=== PATIENT | female | born 1940 | race Asian ===

== ENCOUNTER → 2017-04-01 | Outpatient (CLI) | payer OTHER | END | disposition home or self-care (01) | LOC: RD 08:46 | DX: R06.02 Shortness of breath (principal) ==

== ENCOUNTER 2019-06-18 07:34 | Inpatient (IN) | payer OTHER ==
[~2019-06-18] VITALS: Ht 157.5 cm; Wt 48.1 kg
[2019-06-18 07:43] VITALS: Ht 157.5 cm; Wt 48.1 kg
[2019-06-18 09:30] LABS: ALBUMIN 3.7 g/dL (3.4-5.0); ALKALINE PHOSPHATASE 123 U/L (46-116); ALT/SGPT 14 U/L (14-59); AST/SGOT 16 U/L (15-37); BILIRUBIN TOTAL 0.71 mg/dL (0.20-1.00); CALCIUM 9.7 mg/dL (8.5-10.1); CARBON DIOXIDE 30.9 mmol/L (21-32); CHLORIDE SERUM 100 mmol/L (98-107); GLUCOSE SERUM 142 mg/dL (74-106); POTASSIUM SERUM 4.9 mmol/L (3.5-5.1); SODIUM SERUM 138 mmol/L (136-145); TOTAL PROTEIN, SERUM 7.3 g/dL (6.4-8.2)
[2019-06-18 09:36] LABS: CREATININE SERUM 6.1 mg/dL (0.6-1.0)
[2019-06-18 09:38] LABS: BASOPHIL % 0.4 % (0-2); PLATELET COUNT 333 x10^3mcL (130-400)
[2019-06-18] MEDS ORDERED: NOR5 PO (10:56)
[2019-06-18] MEDS ORDERED: CLONIDINE HYDR0.3 M1 PO (10:56)
[2019-06-18] MEDS ORDERED: LOPRESSOR50 M1 PO (10:56)
[2019-06-18] MEDS ORDERED: HYDRALAZINE HCL25 MG PO (10:57)
[2019-06-18] MEDS ORDERED: HYDRALAZINE HCL25 MG (10:57)
[2019-06-18] MEDS ORDERED: GLIPIZIDE10 M2 PO (10:57)
[2019-06-18] MEDS ORDERED: XANAX0.5 MG PO (10:57)
[2019-06-18] MEDS ORDERED: AMLODIPINE BESYL5 M2 PO (10:59)
[2019-06-18 13:22] LABS: CHOLESTEROL/HDL RATIO 3.6; MAGNESIUM 2.3 mg/dL (1.8-2.4); PHOSPHOROUS 3.4 mg/dL (2.5-4.9)
[2019-06-18 13:38] LABS: T3 TOTAL 1.2 ng/mL
[2019-06-18 13:47] LABS: FREE T4 1.39 ng/dL (0.76-1.46)
[2019-06-18 13:49] LABS: FREE THYROXINE INDEX 4.9 ug/dL (1.4-4.5); T4(THYROXINE) 13.5 ug/dL (4.7-13.3)
[2019-06-18 14:20] VITALS: BP 191/76
[2019-06-18 17:02] VITALS: BP 172/68
[2019-06-18 18:02] VITALS: BP 172/68
[2019-06-18 18:30] VITALS: BP 175/80
[2019-06-18 21:06] VITALS: BP 184/63
[2019-06-18 22:52] VITALS: BP 148/53
[2019-06-19] VITALS (7 sets, daily range): BP systolic 117–189; BP diastolic 48–72
[2019-06-19 06:51] LABS: BASOPHIL % 0.9 % (0-2); PLATELET COUNT 299 x10^3mcL (130-400)
[2019-06-19 07:31] LABS: CALCIUM 9.5 mg/dL (8.5-10.1); CARBON DIOXIDE 28.2 mmol/L (21-32); CHLORIDE SERUM 98 mmol/L (98-107); GLUCOSE SERUM 183 mg/dL (74-106); POTASSIUM SERUM 4.8 mmol/L (3.5-5.1); SODIUM SERUM 138 mmol/L (136-145)
[2019-06-19 07:35] LABS: CREATININE SERUM 7.2 mg/dL (0.6-1.0)
[2019-06-20 04:20] VITALS: BP 126/53
[2019-06-20 07:47] LABS: BASOPHIL % 1.8 % (0-2); PLATELET COUNT 315 x10^3mcL (130-400)
[2019-06-20 07:54] LABS: CALCIUM 9.5 mg/dL (8.5-10.1); CARBON DIOXIDE 32.5 mmol/L (21-32); CHLORIDE SERUM 102 mmol/L (98-107); GLUCOSE SERUM 122 mg/dL (74-106); PHOSPHOROUS 3.7 mg/dL (2.5-4.9); POTASSIUM SERUM 4.1 mmol/L (3.5-5.1); SODIUM SERUM 141 mmol/L (136-145)
[2019-06-20 07:56] LABS: CREATININE SERUM 5.1 mg/dL (0.6-1.0)
[2019-06-20 08:25] LABS: RED CELL DISTRIBUTION WIDTH 14.6 % (11.5-14.5)
[2019-06-20 09:05] VITALS: BP 152/57
[2019-06-20] MEDS ORDERED: PACERONE200 MG PO (12:27)
[2019-06-20] MEDS ORDERED: METOPROLOL TART50 MG PO (12:28)
[2019-06-20] MEDS ORDERED: ZESTRIL20 MG PO (12:28)
[2019-06-20] MEDS ORDERED: ELIQUIS2.5 MG PO (12:28)
[2019-06-20] MEDS ORDERED: CLONIDINE HCL0.1 MG PO (12:31)
[2019-06-20 13:16] VITALS: BP 146/53
== END 2019-06-20 14:40 | disposition home or self-care (01) | DRG 291 ==
LOC: ED 07:34 → DU 12:34
PROVIDERS: Emergency Medicine; ADMIT General Practice
PROC: 5A1D70Z Performance of Urinary Filtration, Intermittent, Less than 6 Hours Per Day (ICD-10-PCS; principal; 2019-06-19)
DX: I13.2 Hypertensive heart and chronic kidney disease with heart failure and with stage 5 chronic kidney disease, or end stage renal disease (principal); N18.6 End stage renal disease; J96.00 Acute respiratory failure, unspecified whether with hypoxia or hypercapnia; I50.33 Acute on chronic diastolic (congestive) heart failure; Z68.1 Body mass index [BMI] 19.9 or less, adult; I48.91 Unspecified atrial fibrillation; E11.9 Type 2 diabetes mellitus without complications; E78.5 Hyperlipidemia, unspecified; Z99.2 Dependence on renal dialysis
CPT/HCPCS: 82962; 83880; 84439; 90732; 97116-GP; 97530-GP; G0378; J1644; J1815; J1940; J3490; J7030; J7620; Q0092

== ENCOUNTER 2019-06-27 13:56 | Inpatient (IN) | payer OTHER ==
[~2019-06-27] VITALS: Ht 154.9 cm; Wt 46.4 kg
[~2019-06-27 13:56] MED LIST: AMLODIPINE BESYL5 M2 PO; CLONIDINE HCL0.1 MG PO; CLONIDINE HYDR0.3 M1 PO; ELIQUIS2.5 MG PO; GLIPIZIDE10 M2 PO; HYDRALAZINE HCL25 MG; HYDRALAZINE HCL25 MG PO; LOPRESSOR50 M1 PO; METOPROLOL TART50 MG PO; NOR5 PO; PACERONE200 MG PO; XANAX0.5 MG PO; ZESTRIL20 MG PO
--- NOTE | 2019-06-27 14:05 | NUR ---
PT PRESENTS TO ED WITH C/C OF CHEST PAIN BEGINNING LAST NIGHT. PT'S DAUGHTER STATED "SHE DOUBLED UP ON HER BP MEDICATIONS LAST NIGHT INSTRUCTED BY HER DR." REPORTS TAKING AMLODIPINE, HYDRALAZINE, AND LOPRESSOR LAST NIGHT. PT STATES THAT SHE WAS FEELING DIZZY LAST NIGHT S/P TAKING HER MEDICATIONS AND BEGAN TO SEE "PURPLE". PT STATED "I FELT HEAVY POUNDING ON MY CHEST LAST NIGHT SO I TOOK DOUBLE OF MY MEDICATIONS." PT IS SPEAKING IN FULL CLEAR SENTENCES, AWAKE, ALERT. PT'S DAUGHTER AND AT BEDSIDE. RESP E/U. DR. JAMES AT BEDSIDE.
--- NOTE | 2019-06-27 14:14 | NUR ---
IVP ATROPINE ADMINISTERED PER MD ORDER. PT AND FAMILY VERBALIZED UNDERSTANDING. PT REMAINS ON FULL SINGING TELEGRAM PERFORMER. WILL CONTINUE TO MONITOR. PT IS AWAKE, ALERT, SPEAKING CLEARLY, DOES NOT COMPLAIN OF ANY SYMPTOMS.
--- NOTE | 2019-06-27 14:29 | NUR ---
MD MADE AWARE OF HR STILL SHOWING 32 ON THE HOSPITAL CARRIER. PER DR JAMES, JUST CONTINUE TO MONITOR. PT IS AAOX4, RESP E/U, CONVERSING WITH FAMILY AT BEDSIDE.
[2019-06-27 14:32] LABS: BASOPHIL % 0.7 % (0-2); PLATELET COUNT 272 x10^3mcL (130-400); RED CELL DISTRIBUTION WIDTH 15.2 % (11.5-14.5)
[2019-06-27 14:38] LABS: ALBUMIN 3.5 g/dL (3.4-5.0); ALKALINE PHOSPHATASE 132 U/L (46-116); ALT/SGPT 28 U/L (14-59); AST/SGOT 36 U/L (15-37); BILIRUBIN TOTAL 0.4 mg/dL (0.20-1.00); CALCIUM 9.3 mg/dL (8.5-10.1); CHLORIDE SERUM 99 mmol/L (98-107); GLUCOSE SERUM 210 mg/dL (74-106); POTASSIUM SERUM 4.9 mmol/L (3.5-5.1); SODIUM SERUM 139 mmol/L (136-145); TOTAL PROTEIN, SERUM 6.8 g/dL (6.4-8.2)
[2019-06-27 14:41] LABS: CREATININE SERUM 5.3 mg/dL (0.6-1.0)
--- NOTE | 2019-06-27 15:32 | NUR ---
PT MEDICATED PER MD ORDER. PT AND FAMILY VERBALIZED UNDERSTANDING OF MEDICATION PRIOR TO ADMINISTRATION.
[2019-06-27] MEDS ORDERED: GLUCOTROL10 MG PO (15:35)
[2019-06-27] MEDS ORDERED: HYDRALAZINE HCL50 MG PO (15:35)
[2019-06-27] MEDS ORDERED: NOR10 PO (15:35)
[2019-06-27] MEDS ORDERED: XANAX0.5 MG PO (15:36)
[2019-06-27] MEDS ORDERED: LOPRESSOR50 M1 PO (15:36)
--- NOTE | 2019-06-27 15:45 | NUR ---
PT VOMITTING, ORDER FOR ZOFRAN ADMINISTERED. PT VERBALIZED UNDERSTANDING OF MEDICATION PRIOR TO ADMINISTRATION.
--- NOTE | 2019-06-27 16:06 | NUR ---
PT IS SITTING UP IN GURNEY, SPEAKING IN FULL CLEAR SENTENCES, CONVERSING WITH FAMILY AT BEDSIDE. REPORTS SHE NO LONGER FEELS NAUSEOUS. PT IS AAOX4, RESP E/U, NAD NOTED.
--- NOTE | 2019-06-27 17:12 | NUR ---
PT IS AWAKE, ALERT, LAYING DOWN IN GURNEY, SPEAKING IN FULL CLEAR SENTENCES. RESP E/U. FAMILY AT BEDSIDE. DENIES ANY SOB OR CP. NAD NOTED.
--- NOTE | 2019-06-27 17:47 | NUR ---
GAVE REPORT TO KOBE SCHWARTZ IN ICU TO ASSUME CARE FOR PT.
[2019-06-27 17:50] LABS: T3 TOTAL 0.59 ng/mL
[2019-06-27 17:54] LABS: FREE T4 1.57 ng/dL (0.76-1.46)
[2019-06-27 17:57] LABS: FREE THYROXINE INDEX 5.6 ug/dL (1.4-4.5); T4(THYROXINE) 14.4 ug/dL (4.7-13.3)
--- NOTE | 2019-06-27 18:10 | NUR ---
RECEIVED THE PATIENT FROM ER DEPT VIA [employer]; THE PATIENT AWAKE AND ORIENTED TO PERSON, PLACE AND . PATIENT COMMUNICATES WITH CLEAR SPEECH AND PROVIDED INFORMATION. PATIENT IS HOOKED UP TO MONITOR # 5, WHICH READS SINUS BRADYCARDIA WITH HR 34. IV SITE TO RAC AND RIGHT HAND. AV SHUNT TO LEFT ARM. CALL LIGHT WITHIN REACH. SIDE RAILS UP X3. BED IS AT LOWEST POSITION. ALARM IS ON.
[2019-06-27 18:23] VITALS: BP 109/84
--- NOTE | 2019-06-27 18:37 | NUR ---
PATIENT'S HR 34- ADMINISTERED 0.5 MG ATROPINE PER MD ORDER. WILL CONTINUE TO MONITOR.
--- NOTE | 2019-06-27 18:38 | NUR ---
DR. HUNT CALLED IN TO ASK FOR THE PATIENT'S STATUS. UPDATE PROVIDED TO THE DOCTOR. NEW ORDER RECEIVED VIA TELEPHONE. WILL CARRY OUT.
--- NOTE | 2019-06-27 19:30 | NUR ---
RECEIVED REPORT FROM KOBE MCKEON. PT IS ALERT AND ORIENTED TO SELF. PUPILS REACTIVE TO LIGHT. PT RESTLESS IN BED, AND ATTEMPTING TO STAND UP. PT AND FAMILY EDUCATED THAT BECAUSE OF THE LOW HR, STANDING UP MAY CAUSE DIZZINESS, OR FAINTING, PT UNDERSTOOD. PT IS BREATHING E/U ON RA. LUNG SOUNDS CLEAR TO BILATERAL UPPER LOBES, DIMINISHED TO BILATERAL LOWER LOBES. CAP REFILL <3 SECS X4. SKIN IS WARM AND CONSISTENT WITH ETHNICITY. PULSES WEAK X4. PERIPHERAL IV TO RIGHT HAND AND RIGHT AC PATENT, DRESSING CDI. NS INFUSING AT 100 ML/HR. PT HAS DIALYSIS SHUNT TO RIGHT UPPER ARM WITH BRUIT AND THRILL PRESENT. ABD IS SOFT AND ROUNDED WITH ACTIVE BOWEL SOUNDS X4Q. PT VOIDS USING BEDPAN. SKIN INTACT. PT WAS COMPLAINING OF PAIN TO BUTTOCKS AREA, HYDRAGUARD PLACED TO AREA PER PT'S DAUGHTER REQUEST. PT DOES HAVE DRYNESS TO AREA BUT NO WOUND PRESENT. PT HAS GENERALIZED WEAKNESS. ABLE TO REPOSITION SELF IN BED. ALL QUESTIONS AND CONCERNS ANSWERED.
--- NOTE | 2019-06-27 21:25 | NUR ---
DR. TERESA AND DR. SHAFFER AT BEDSIDE FOR ASSESSMENT. DR. TERESA ORDERED PATIENT TO BE PLACED ON EXTERNAL PACEMAKER. CURRENTLY AT A RATE OF 50, AND 8. DR. TERESA SPOKE TO DAUGHTER THAT MOST LIKELY PT WILL REQUIRE PERMANENT PLACEMAKER THAT MAY BE SURGICALLY PLACED TOMORROW BY HIMSELF. PT'S DAUGHTER ALSO REQUESTING TRANSFER TO ANOTHER HOSPITAL THAT HER FAMILY MEMBER IS EMPLOYED, DR. TERESA MADE HER AWARE THAT BECAUSE OF INSURANCE PURPOSES, SHE SHE MAY NEED TO STAY HERE, BUT THAT HE WOULD FIND OUT FOR HER. ALL QUESTIONS AND CONCERNS ANSWERED.
--- NOTE | 2019-06-27 21:39 | NUR ---
DR. SHAFFER CHANGED NS FROM RATE OF 100 TO 50 FOR THE KIDNEYS. IN ADDITION, DAUGHTER REQUESTED SOMETHING TO HELP HER MOTHER "CALM DOWN", ORDERED PRN XANAX AND MORPHINE. TOLD DAUGHTER THAT PT MAY HAVE A CT OF HER HEAD DONE, AND DO TO PURPOSES OF CONFUSION, MAY HOLD XANAX TO NOT CONFUSE HER MORE. DAUGHTER UNDERSTOOD. WILL CONTINUE TO MONITOR.
--- NOTE | 2019-06-27 22:12 | NUR ---
DR. SHAFFER ORDERED CT OF THE HEAD. CREWMAN ARMOURED PERSONNEL CARRIER M113 MADE AWARE THAT PT IS VERY RESTLESS, AND TECH CAME TO SEE PT. CREWMAN ARMOURED PERSONNEL CARRIER M113 AGREED THAT PT WAS TOO RESTLESS TO HAVE ACCURATE EXAM DONE, DR. SHAFFER MADE AWARE. FAMILY MADE AWARE THAT PT IS NOT IN CONDITION FOR EXAM. VERBALIZED UNDERSTANDING.
[2019-06-27 23:55] VITALS: BP 109/84
[2019-06-28 05:31] LABS: CALCIUM 9.6 mg/dL (8.5-10.1); CARBON DIOXIDE 31.1 mmol/L (21-32); CHLORIDE SERUM 102 mmol/L (98-107); GLUCOSE SERUM 84 mg/dL (74-106); MAGNESIUM 2.5 mg/dL (1.8-2.4); PHOSPHOROUS 5.3 mg/dL (2.5-4.9); POTASSIUM SERUM 5.3 mmol/L (3.5-5.1); SODIUM SERUM 142 mmol/L (136-145)
--- NOTE | 2019-06-28 05:32 | NUR ---
DR. GREGORIO AT BEDSIDE FOR ASSESSMENT. ALL QUESTIONS AND CONCERNS ANSWERED.
[2019-06-28 05:42] LABS: CREATININE SERUM 6.2 mg/dL (0.6-1.0)
[2019-06-28 05:45] LABS: BASOPHIL % 0.4 % (0-2); PLATELET COUNT 263 x10^3mcL (130-400)
--- NOTE | 2019-06-28 06:43 | NUR ---
BLOOD SUGAR < 70. PROVIDED WITH ORANGE JUICE WITH PACKETS OF SUGAR. WILL RECHECK AGAIN IN 10 MINS.
--- NOTE | 2019-06-28 06:45 | NUR ---
PAGED DR. GREGORIO ABOUT HIGH BP. WILL AWAIT FURTHER INSTRUCTION.
--- NOTE | 2019-06-28 07:20 | NUR ---
RECIEVED REPORT FROM KOBE GARZA TO ASSUME ALL CARES. ALL QUESTIONS AND CONERNS ADDRESSED. PATIENT IS A/O X3. FORGETFUL AT TIMES. RESPIRATIONS ARE EQUAL AND SYMMETRICAL ON ROOM AIR. PATIENT'S AT BEDSIDE. NS INFUSING AT 50 ML/HR VIA RAC IV WITH NO SIGNS OF INFILTRATION NOTED. PATIENT SITTING UP IN BED EATING CCHO DIET, TOLERATING WELL. SCD'S AT BEDSIDE. BED TO OWEST POSITION, SIDE RAILS UP X3, CALL LIGHT WITHIN REACH. WILL CONTINUE TO MONITOR.
--- NOTE | 2019-06-28 08:34 | NUR ---
ECHOCARDIOGRAM PENDING-DONE HERE 06/18/19-COPY IN CHART
--- NOTE | 2019-06-28 08:51 | NUR ---
DR. FIERRO, RESIDENT DR. GREGORIO, PRIMARY RN, MYSELF AND PT'S DAUGHTER AT BEDSIDE TO DISCUSSE PLAN OF CARE. PT AND PT'S DAUGHTER AWARE WAITING ON DR. HUNT TO CONFIRM PACEMAKER PLACEMENT AND ALSO WAITING ON NEPHROLOGY TO ASSESS PT FOR HD. ALL IN AGREEMENT WITH PLAN OF CARE. WILL CONT TO MONITOR.
[2019-06-28 08:55] VITALS: BP 182/51
--- NOTE | 2019-06-28 09:36 | NUR ---
RECIEVED CALL FROM DR. HUNT AND PROVIDED HIM UPDATES. INSTRUCTED TO REVIEW UNDERLYING RHYTHM WHICH WAS NOTED SINUS BRADYCARDIA HR 40. ALSO MADE DR. HUNT AWARE OF CURRENT NIBP 178/51. NEW ORDERS RECIEVED TO CONTINUE PT'S HYDRALAZINE, NORVASC 5 MG PO BID TO START ONE HOUR AFTER HYDRALAZINE GIVEN, AND LISINIPRIL 20 MG PO DAILY TO START AT NOON. ORDERS READBACK AND CONFIRMED. PRIMARY RN AWARE. PER DR. HUNT HE WILL TALK TO D/C COORDINATOR IN REGARDS TO PT TRANSFER. CONTINUE ON EXTERNAL PACER FOR NOW.
[2019-06-28 11:36] VITALS: BP 182/46
--- NOTE | 2019-06-28 12:22 | NUR ---
DR. COLINDRES AT BEDSIDE, UPDATE PROVIDED. RT AND PRIMARY RN ELIZABETH AT BEDSIDE WELL. NS @ 50ML/HR DISCONTINUED PER DR. COLINDRES. WILL BE PLACING ORDERS FOR DIALYSIS TODAY. RN ELIZABETH AWARE AND WILL CONTINUE TO MONITOR.
--- NOTE | 2019-06-28 12:27 | NUR ---
CALLED FINNEGAN, DIALYSIS NURSE TO NOTIFY OF NEW DIALYSIS ORDERS FOR TODAY. WILL CONTINUE TO MONITOR.
--- NOTE | 2019-06-28 12:46 | NUR ---
DR. COLINDRES IN UNIT TO SEE AND ASSESS PT. PT TO HAVE DIALYSIS TODAY. RISK AND BENEFITS EXPLAINED. OBTAINED SIGNED CONSENT FROM PT WHO IS A/O X 4 WITNESSED BY MYSELF AND PLACED IN PT CHART.
[2019-06-28 15:27] VITALS: BP 159/59
--- NOTE | 2019-06-28 19:00 | NUR ---
RECEIVED REPORT FROM ELIZABETH BULLOCK. ASSUMING ALL CARE
[2019-06-28 19:15] VITALS: BP 226/74
--- NOTE | 2019-06-28 19:16 | NUR ---
RECEIVED PT LAYING IN BED. PT IS A/OX4. SPEECH IS CLEAR. ABLE TO MAKE NEEDS KNOWN/FOLLOW SIMPLE COMMANDS. PUPILS WITH BRISK REACTION TO LIGHT, 3 MM BILAT. DENIES NOEL. BREATHING IS E/U ON RA. LUNGS SOUND CLEAR BILAT. SYMMETRICAL CHEST EXPANSION NOTED. S1/S2 HEART SOUNDS AUSCULTATED. CHEST WALL EQUAL AND SYMMETRICAL. PT PACED EXTERNALLY, SET AT 50 BPM WITH 8 MA. DENIES ANY CP/DIZZINESS. PALPABLE PULSES X4 EXTREMITIES. SKIN IS WRAM AND DRY. NO EDEMA NOTED. CAP REFILL < 3 SECS. RAC AND RH IV'S IN PLACE, SALINE LOCKED. GENERALIZED WEAKNESS. PT ON BEDREST. NO JOINT SWELLING/DEFORMITY NOTED. ACTIVE FULL ROM X4 EXTREMITIES. ABD IS SOFT, FLAT, NONTENDER TO PALPATION. BOWEL SOUNDS ACTIVE X4 QUADRANTS. NO BM NOTED. PT C/O FEELING NAUSEAS. LEFT UPPER EXTREMITY SHUNT WITH BRUIT AND THRILL PRESENT. PT CURRENTLY RECEIVING HD. NO LABIAL EDEMA/VAGINAL DISCHARGE NOTED. SKIN IS INTACT. PT ASSISTED TO REPOSITION Q2H AND PRN FOR COMFORT. PT IS CALM AND COOPERATIVE. FAMILY AT BEDSIDE. BED IN LOW POSITION. CALL LIGHT IN REACH. WILL CONT TO MONITOR
--- NOTE | 2019-06-28 20:07 | NUR ---
DR. TERESA AT BEDSIDE. UPDATES ON PT'S STATUS. MADE AWARE PT IS SHAKING AT THIS TIME. ORDER FOR BENADRYL 25 MG IVP TO BE ADMINISTERED. ORDER NOTED AND CARRIED OUT
--- NOTE | 2019-06-28 20:10 | NUR ---
NIBP 241/70. HYDRALAZINE 10 MG IVP ADMINISTERED PER EMAR ORDER
--- NOTE | 2019-06-28 20:12 | NUR ---
DR HUNT AT BEDSIDE, UPDATED ON STATUS. MADE AWARE PTS SBP >200, TRENDING UP WITH ALL DUE B/P MEDS GIVEN. VERBAL ORDER GIVEN HYDRALAZINE 10MG IVP NOW, CHANGE LISINOPRIL FREQUENCY TO BID, CHANGE CLONIDINE DOSE TO 0.2 MG. ORDER READ BACK. ALL ORDERS NOTED AND CARRIED OUT. WILL CONTINUE TO MONITOR.
--- NOTE | 2019-06-28 20:30 | NUR ---
ORDER TO TURN OFF EXTERNAL PACEMAKER AT THIS TIME BY DR. HUNT AT BEDSIDE. NOTED PT'S SUSTAINING HR IN THE 80'S. PER DR. HUNT, KEEP PACEMAKER OFF AT THIS TIME.
--- NOTE | 2019-06-28 20:33 | NUR ---
PER DR. HUNT, ODER AN ADDITIONAL 0.1 MG OF CLONIDINE TO BE GIVEN AT THIS TIME WELL MORPHINE 2 MG IVP. PT STILL SHAKING. PER DR. HUNT, ORDER BENADRYL 25 MG IVP TO BE ADMINISTERED IN 1 HOUR. ORDER FOR HYDRALAZINE 10 MG IVP Q6H PRN SYSTOLIC > 170 AND ORDER FOR EKG TOMORROW MORNING NOTED AND CARRIED OUT.
--- NOTE | 2019-06-28 21:20 | NUR ---
RT AT BEDSIDE FOR EKG
--- NOTE | 2019-06-28 21:30 | NUR ---
DR. HUNT MADE AWARE MOST RECENT EKG READ A-FIB. AWARE SYSTOLIC BP REMAINS IN THE 200'S. PER DR. HUNT, ORDER CARDIZEM GTT TO KEEP BP BELOW 170 AND HR ABOVE 60. ORDER FOR LOVENOX 30 MG DAILY. ORDER READ BACK AND IN AGREEMENT. WILL CARRY OUT ORDER.
--- NOTE | 2019-06-28 21:40 | NUR ---
HD COMPLETED AT THIS TIME. 2.2 LITERS WERE REMOVED. NIBP 197/65 MAP 124, HR 78. WILL CONT TO MONITOR.
--- NOTE | 2019-06-28 22:14 | NUR ---
NIBP 197/58 MAP 141. CARDIZEM GTT INITIATED AT THIS TIME @ 5 MG/HR PER EMAR. WILL CONT TO MONITOR
--- NOTE | 2019-06-28 22:48 | NUR ---
NIBP 188/58 MAP 129. CARDIZEM GTT TITRATED TO 10 MG/HR. WILL CONT TO MONITOR
[2019-06-28 23:03] VITALS: BP 189/57
--- NOTE | 2019-06-28 23:30 | NUR ---
NIBP 183/51 MAP 123. CARDIZEM GTT TITRATED TO 15 MG/HR. WILL CONT TO MONITOR
[2019-06-29] VITALS (7 sets, daily range): BP systolic 165–193; BP diastolic 56–64; Ht 154.9 cm; Wt 46.4 kg
--- NOTE | 2019-06-29 02:15 | NUR ---
FULL BED BATH PROVIDED. GOWN AND LINENS CHANGED. HEELS OFFLOADED.
--- NOTE | 2019-06-29 04:40 | NUR ---
JEWELER APPRENTICE AT BEDSIDE FOR AM LAB DRAW
--- NOTE | 2019-06-29 05:10 | NUR ---
PT C/O L-SIDED SHARP NONRADIATING CP RATED 7/10. PT MEDICATED WITH MORPHINE IVP PER EMAR. WILL CONT TO MONITOR
[2019-06-29 05:27] LABS: CALCIUM 9.5 mg/dL (8.5-10.1); CARBON DIOXIDE 27.6 mmol/L (21-32); CHLORIDE SERUM 104 mmol/L (98-107); CREATININE SERUM 3.6 mg/dL (0.6-1.0); GLUCOSE SERUM 108 mg/dL (74-106); MAGNESIUM 1.9 mg/dL (1.8-2.4); PHOSPHOROUS 4.1 mg/dL (2.5-4.9); POTASSIUM SERUM 4.2 mmol/L (3.5-5.1); SODIUM SERUM 144 mmol/L (136-145)
[2019-06-29 05:36] LABS: BASOPHIL % 0.5 % (0-2); PLATELET COUNT 316 x10^3mcL (130-400)
[2019-06-29 05:37] LABS: RED CELL DISTRIBUTION WIDTH 16.1 % (11.5-14.5)
--- NOTE | 2019-06-29 05:52 | NUR ---
CARDIZEM GTT TITRATED TO 10 MG/HR. HR IN THE LOW 60'S HIGH 50'S
--- NOTE | 2019-06-29 06:55 | NUR ---
CARIDIZEM GTT TITRATED TO 5 MG/HR. HR IN THE HIGH 50'S
--- NOTE | 2019-06-29 07:05 | NUR ---
REPORT GIVEN TO ELIZABETH BULLOCK. ALL QUESTIONS/CONCERNS ADDRESSED. ENDORSING ALL CARE
--- NOTE | 2019-06-29 07:10 | NUR ---
RECIEVED REPORT FROM KOBE DOUGLAS TO ASSUME ALL CARES. ALL QUESTIONS AND CONCERNS ADDRESSED. PATIENT IS A/O X4. ABLE TO FOLLOW COMMANDS AND MAKE NEEDS KNOWN. RESPIRATIONS ARE EQUAL AND SYMMETRICAL ON 2L NASAL CANNULA. AV SHUNT NOTED TO LUE WITH THRILL AND BRUIT PRESENT. MILD TREMORS NOTED TO BUE. IV NOTED TO RIGHT AC AND SALIN LOCKED AT THIS TIME. BED TO LOWEST POSITION, SIDE RAILS UP X3, CALL LIGHT WITHIN REACH AND FALL PRECAUTIONS IN PLACE. FAMILY AT BEDSIDE AND SUPPORTIVE IN CARE. WILL CONTINUE TO MONITOR.
--- NOTE | 2019-06-29 08:15 | NUR ---
DR. BROOKE IN UNIT TO SEE AND ASSESS PT. RECOMMEND PT TO HAVE PHYSICAL THERAPY EVAL. PRIMARY RN MADE AWARE.
--- NOTE | 2019-06-29 08:37 | NUR ---
DR. FIERRO, [facility] [employer] [employer], PRIMARY RN AND TEASEL SETTER AT BEDSIDE FOR MORNING ROUNDS. STATED PT OK TO TRANSFER TO [facility] ONCE CLEARED BY DR. HUNT.
--- NOTE | 2019-06-29 09:40 | NUR ---
RT HIGINIO AT BEDSIDE AND CHANGED THE FI02 FROM 60 TO 100% AT THIS TIME. WILL CONTINUE TO MONITOR.
--- NOTE | 2019-06-29 11:16 | NUR ---
DR. HUNT AT BEDSIDE TO ASSESS PATIENT. UPDATES PROVIDED AND POC DISCUSSED. ORDERS TO START AMIODARONE AND CARDIZEM PO AND EKG DONE. PATIENT CLEARED BY CARDIOLOGY TO BE TRANSFERRED TO TELE. WILL CONTINUE TO MONITOR.
--- NOTE | 2019-06-29 12:37 | NUR ---
CARDIAC RHYTHM SHOWS PATIENT CONVERTED FROM SINUS TO CONTROLLED A. FIB AT THIS TIME. WILL CONTINUE TO MONITOR.
--- NOTE | 2019-06-29 14:41 | NUR ---
OBSERVED PT VOMITTING, ZOFRAN ADMINISTERED PER PRN ORDER. HOB ELEVATED. EMESIS BAG PROVIDED. FAMILY AT BED SIDE, CALL LIGHT IN REACH. WILL REASSESS.
--- NOTE | 2019-06-29 16:30 | NUR ---
REPORT GIVEN TO KOBE RAMIREZ PRIOR TO PATIENT TRANSFERRING TO TELE. ALL QUESTIONS AND CONCERNS ADDRESSED. PATIENT TRANFERRED VIA BED ATTACHED TO TELE BOX #22 ACCOMPANIED BY TWO NURSE. MET FAMILY UPSTAIRS IN ROOM. ALL BELONGINGS SENT WITH PATIENT. NO INCIDENCE OCCURRED.
--- NOTE | 2019-06-29 16:39 | NUR ---
RECEIVED PHONE REPORT FROM ICU. PATIENT BROUHGT UP BY GUILLE ACCOMPANITED BY ICU RNS. PATIENT NOW IN ROOM 207 BED A. A/O X4 WITH NO COMPLAINTS OF PAIN, SPEECH CLEAR AND FOLLOWING COMMANDS. PATIENT ON ROOM AIR AT 95% REPORT STATES THAT PATIENT OCCASIONALLY WILL DESAT AND APPLIES NASAL CANULA AT 2LPM. ORRIENTED PATIEN TO ROOM AND CALL LIGHT SYSTEM. INSTRUCTED TO USE CALL LIGHT IF NEEDING ASSITANCE
--- NOTE | 2019-06-29 16:43 | NUR ---
PATIENT BLOOD PRESSURE ELEVATED 171/65. PER ICU REPORT, PATIENT HAS BEEN HAVING HTN DURING STAY, WILL REVIEW MAR AND GIVE MEDICATION ACCORDINGLY. TELE 22 PLACED ON PATIENT, SHOWING AFIB.
--- NOTE | 2019-06-29 19:20 | NUR ---
RECEIVED REPORT FROM KOBE RAMIREZ. PT AAOX4 WITH FAMILY AT BEDSIDE. PT DENIES ANY HEADACHE OR DIZZINESS AT THIS TIME. PT IS TELE #22 WITH NSR WITH HR 89. DENIES ANY CHEST PAIN OR PRESSURE AT THIS TIME. PT PULSES PALPABLE 3+ AND CAP REFILL <3 SEC. PT HAS ELIQUIS PO. PT LUNG SOUNDS CTA. PT IS ON RA AND 2L NASAL CANNULA WITH O2 SAT OF 97%. DENIES ANY SOB OR RESPIRATORY DISTRESS AT THIS TIME. ABD SOFT AND NONDISTENDED. NORMOACTIVE BOWEL SOUNDS X4. DENIES ANY N/V AT THIS TIME. PT VOIDS FREELY. PT ON HEMODIALYSIS MWF. LAST HDL OUTPUT WAS 2.2L ON 06/28. PT HAS LEFT AV SHUNT-BRUIT/THRILL PRESENT. PT HAS GENERALIZED WEAKNESS. SKIN IS INTACT AND WNL. PT RAC IV AND RH IV PATENT AND WNL. BP WILL BE MONITORED THROUGHOUT SHIFT. CALL LIGHT WITHIN REACH. BED IN LOWEST POSITION. WILL CONTINUE TO MONITOR.
--- NOTE | 2019-06-29 20:35 | NUR ---
PT BP 185/57, HR 85. SCHEDULED BP MEDS GIVEN. PT DENIES ANY HEADACHE OR DIZZINESS. NO RESPIRATORY DISTRESS NOTED. WILL REASSESS BP.
--- NOTE | 2019-06-29 21:43 | NUR ---
SPOKE WITH DIALYSIS NURSE REGARDING PT DIALYSIS FOR TOMORROW 06/30. DIALYSIS NURSE WILL PUT IN THE ORDER. WILL FOLLOW UP.
--- NOTE | 2019-06-29 22:00 | NUR ---
PT BP 193/63, HR 88. SCHEDULED BP MEDS GIVEN. NO ACUTE DISTRESS NOTED. WILL CONTINUE TO MONITOR.
[2019-06-30 00:41] VITALS: BP 180/54
--- NOTE | 2019-06-30 00:44 | NUR ---
PT HAD 1X EPISODE OF EMESIS INTO EMESIS BAG. OUTPUT OF 900CC. PT STATED "I HAD ONE BITE OF FOOD AND I THREW UP A LOT AFTER." PROVIDED EXTRA EMESIS BAGS AT BEDSIDE. OFFERED PT ZOFRAN PRN, BUT PT REFUSED. DAUGHTER IS AT BEDSIDE AND HELPED PT WITH EMESIS EPISODE.
--- NOTE | 2019-06-30 02:20 | NUR ---
PT BP CONTINUES TO BE HIGH AFTER SCHEDULED PO BP MEDS. PT BP 182/60, HR 89. PRN HYDRALAZINE IVP GIVEN ORDERED. NO ACUTE DISTRESS NOTED. WILL NOTIFY
--- NOTE | 2019-06-30 03:00 | NUR ---
PER ESTIMATOR PRINTING, PT CONVERTED FROM NSR TO AFIB, HR 90s. PT ASSESSED AND DENIES ANY CHEST PAIN OR PRESSURE. NO ACUTE DISTRESS NOTED. WILL CONTINUE TO MONITOR.
[2019-06-30 03:10] VITALS: BP 159/50
--- NOTE | 2019-06-30 03:10 | NUR ---
REASSESSED PT AFTER PRN HYDRALAZINE 10MG. PT BP 159/50, HR 93. WILL CONTINUE TO MONITOR.
[2019-06-30 04:42] VITALS: BP 166/47
--- NOTE | 2019-06-30 06:03 | NUR ---
PT SLEPT AT INTERVALS THROUGHOUT THE EVENING. PT BREATHING EVEN AND UNLABORED ON 2L NC, NO RESPIRATORY DISTRESS NOTED. PT BP 166/47, HR 82. PER ANIL ESPOSITO TO HOLD SCHEDULED CARDIZEM AND HYDRALAZINE D/T LOW DBP. NO ACUTE CHANGES DURING SHIFT. ALL NEEDS MET AND ANTICIPATED. FAMILY AT BEDSIDE. CALL LIGHT WITHIN REACH. WILL ENDORSE CARE TO AM NURSE.
--- NOTE | 2019-06-30 06:08 | NUR ---
PT SLEPT AT INTERVALS THROUGHOUT THE EVENING. PT BREATHING EVEN AND UNLABORED ON 2L NC, NO RESPIRATORY DISTRESS NOTED. PT BP 166/47, HR 82. PER ANIL ESPOSITO TO HOLD SCHEDULED CARDIZEM AND HYDRALAZINE D/T LOW DBP. RBS 61, JUICE AND SNACKS PROVIDED. NO ACUTE CHANGES DURING SHIFT. ALL NEEDS MET AND ANTICIPATED. FAMILY AT BEDSIDE. CALL LIGHT WITHIN REACH. WILL ENDORSE CARE TO AM NURSE.
[2019-06-30 06:14] LABS: BASOPHIL % 0.6 % (0-2); PLATELET COUNT 307 x10^3mcL (130-400)
[2019-06-30 06:21] LABS: CALCIUM 9.7 mg/dL (8.5-10.1); CARBON DIOXIDE 26.6 mmol/L (21-32); CHLORIDE SERUM 104 mmol/L (98-107); GLUCOSE SERUM 67 mg/dL (74-106); MAGNESIUM 2.2 mg/dL (1.8-2.4); PHOSPHOROUS 4.1 mg/dL (2.5-4.9); POTASSIUM SERUM 4.2 mmol/L (3.5-5.1); SODIUM SERUM 144 mmol/L (136-145)
--- NOTE | 2019-06-30 06:29 | NUR ---
PER DR. GREGORIO, WILL HOLD HYDRALAZINE AND OKAY TO GIVE CARDIZEM AT THIS TIME. WILL MEDICATE PER EMAR.
[2019-06-30 07:00] LABS: CREATININE SERUM 5.8 mg/dL (0.6-1.0)
--- NOTE | 2019-06-30 07:05 | NUR ---
RECIEVED PT SITTING UP IN BED WITH NO C/O PAIN OR DISTRESS. FAMILY AT BEDSIDE. A/O X4. TELE#22 CONNECTED TO PT, DENIES ANY CP OR PRESSURE. PT FOUND ON O2 2 LPM. NO SOB NOTED. SALINE LOCK TO RIGHT HAND , INTACT AND PATENT WITH NO REDNESS OR INFLAMMATION NOTED. SAFETY PRECAUTIONS IN PLACE, CALL LIGHT WITHIN REACH, WILL MONITOR.
[2019-06-30 07:27] LABS: RED CELL DISTRIBUTION WIDTH 15.6 % (11.5-14.5)
--- NOTE | 2019-06-30 08:26 | NUR ---
DR GREGORIO AND TEAM AT BEDSIDE DISCUSSING TREATMENT AND POC WITH PT AND FAMILY, ALL VERBALIZE UNDERSTANDING. WILL FOLLOW THROUGH WITH ANY NEW ORDERS AND WILL MONITOR.
[2019-06-30 08:35] VITALS: BP 163/56
--- NOTE | 2019-06-30 11:00 | NUR ---
PT STABLE WITH NO C/O PAIN OR DISTRESS AT THIS TIME. SAFETY PRECAUTIONS IN PLACE, CALL LIGHT WITHIN REACH, WILL MONITOR. FAMILY AT BEDSIDE.
[2019-06-30 12:09] VITALS: BP 149/44
[2019-06-30] MEDS ORDERED: COR200 PO (14:46)
[2019-06-30] MEDS ORDERED: ELIQUIS2.5 MG PO (14:46)
[2019-06-30] MEDS ORDERED: CLONIDINE HCL0.2 MG PO (14:47)
[2019-06-30] MEDS ORDERED: APR50 PO (14:48)
[2019-06-30] MEDS ORDERED: MIN2.5 PO (14:48)
[2019-06-30] MEDS ORDERED: DILTIAZEM30 M1 PO (14:49)
[2019-06-30] MEDS ORDERED: V5 PO (14:50)
[2019-06-30 15:25] VITALS: BP 149/44
--- NOTE | 2019-06-30 16:20 | NUR ---
PT FINISHED WITH HD, 2 LITERS OT AND VS WNL. PT STABLE TO DISCHARGE PER MD ORDER. ALL CARES TOLERATED WELL. ALL DISCHARGE INSTRUCTIONS, EDUCATION, AND PRESCRIPTIONS GIVEN TO PT. PT AND DAUGHTER VERBALIZE UNDERSTANDING. BOTH IV'S REMOVED WITH CATHETER INTACT, NO REDNESS OR INFLAMMATION NOTED TO SITES. TELE MONITOR REMOVED AND RETURNED TO DRAMA TEACHER. ID BANDS REMOVED FROM PT. PT ESCORTED DOWN TO LOBBY VIA BT HUMANITIES INSTRUCTOR. ALL PERSONAL BELONGINGS IN HAND AND FAMILY AT SIDE.
--- NOTE | 2019-07-01 06:40 | NUR ---
ECHOCARDIOGRAM NOT DONE PATIENT DISCHARGED.
== END 2019-06-30 16:26 | disposition home health service (06) | DRG 917 ==
LOC: ED 13:56 → IC 15:00 → DU 15:00 → ED 15:00 → IC 18:10 → DU 06-29 16:25
PROVIDERS: Emergency Medicine; ADMIT Family Medicine
DX: T46.5X1A Poisoning by other antihypertensive drugs, accidental (unintentional), initial encounter (principal); N18.6 End stage renal disease; I12.0 Hypertensive chronic kidney disease with stage 5 chronic kidney disease or end stage renal disease; Z68.1 Body mass index [BMI] 19.9 or less, adult; R00.1 Bradycardia, unspecified; I49.5 Sick sinus syndrome; I48.0 Paroxysmal atrial fibrillation; E11.22 Type 2 diabetes mellitus with diabetic chronic kidney disease; E11.21 Type 2 diabetes mellitus with diabetic nephropathy; E11.65 Type 2 diabetes mellitus with hyperglycemia; J44.9 Chronic obstructive pulmonary disease, unspecified; Z99.2 Dependence on renal dialysis; Z79.84 Long term (current) use of oral hypoglycemic drugs; Z99.81 Dependence on supplemental oxygen; Y92.009 Unspecified place in unspecified non-institutional (private) residence as the place of occurrence of the external cause
CPT/HCPCS: 82962; 84439; 97116-GP; 97530-GP; A4719; G0378; J0360; J0461; J1200; J1610; J1650; J2270; J2405; J3490; J7030; J7620; Q0092

== ENCOUNTER 2019-07-20 13:37 | Emergency (ER) | payer OTHER ==
[~2019-07-20] VITALS: Ht 157.5 cm; Wt 46.3 kg
[~2019-07-20 13:37] MED LIST changes: +APR50 PO; +CLONIDINE HCL0.2 MG PO; +COR200 PO; +DILTIAZEM30 M1 PO; +GLUCOTROL10 MG PO; +HYDRALAZINE HCL50 MG PO; +MIN2.5 PO; +NOR10 PO; +V5 PO
[2019-07-20 13:43] VITALS: Ht 157.5 cm; Wt 46.3 kg
[2019-07-20 14:45] LABS: BASOPHIL % 0.6 % (0-2); PLATELET COUNT 325 x10^3mcL (130-400)
[2019-07-20 14:47] LABS: RED CELL DISTRIBUTION WIDTH 16.4 % (11.5-14.5)
[2019-07-20 14:59] LABS: ALKALINE PHOSPHATASE 91 U/L (46-116); ALT/SGPT 12 U/L (14-59); AST/SGOT 15 U/L (15-37); BILIRUBIN TOTAL 0.3 mg/dL (0.20-1.00); CARBON DIOXIDE 23.6 mmol/L (21-32); CHLORIDE SERUM 94 mmol/L (98-107); POTASSIUM SERUM 4.3 mmol/L (3.5-5.1); SODIUM SERUM 129 mmol/L (136-145); TOTAL PROTEIN, SERUM 6.7 g/dL (6.4-8.2)
[2019-07-20 15:11] LABS: ALBUMIN 3.3 g/dL (3.4-5.0); CREATININE SERUM 4.7 mg/dL (0.6-1.0); GLUCOSE SERUM 46 mg/dL (74-106)
[2019-07-20 16:56] VITALS: BP 129/43
== END 2019-07-20 16:40 | disposition home or self-care (01) ==
LOC: ED 13:37
PROVIDERS: Emergency Medicine
DX: R55 Syncope and collapse (principal); E11.649 Type 2 diabetes mellitus with hypoglycemia without coma; I13.2 Hypertensive heart and chronic kidney disease with heart failure and with stage 5 chronic kidney disease, or end stage renal disease; E11.22 Type 2 diabetes mellitus with diabetic chronic kidney disease; N18.6 End stage renal disease; I50.9 Heart failure, unspecified; Z88.1 Allergy status to other antibiotic agents
CPT/HCPCS: J3490; Q0092

== ENCOUNTER 2019-07-21 07:31 | Inpatient (IN) | payer OTHER ==
[~2019-07-21] VITALS: Ht 152.4 cm; Wt 54.0 kg
[2019-07-21 08:36] LABS: ALBUMIN 3.8 g/dL (3.4-5.0); ALKALINE PHOSPHATASE 100 U/L (46-116); ALT/SGPT 14 U/L (14-59); AST/SGOT 15 U/L (15-37); BILIRUBIN TOTAL 0.3 mg/dL (0.20-1.00); CALCIUM 9.4 mg/dL (8.5-10.1); CARBON DIOXIDE 23.7 mmol/L (21-32); CHLORIDE SERUM 92 mmol/L (98-107); GLUCOSE SERUM 136 mg/dL (74-106); POTASSIUM SERUM 4.7 mmol/L (3.5-5.1); SODIUM SERUM 127 mmol/L (136-145); TOTAL PROTEIN, SERUM 7.4 g/dL (6.4-8.2)
[2019-07-21 09:58] LABS: PLATELET COUNT 372 x10^3mcL (130-400)
[2019-07-21 10:55] VITALS: BP 76/29
[2019-07-21 11:45] LABS: RED CELL DISTRIBUTION WIDTH 15.9 % (11.5-14.5)
[2019-07-21 12:12] VITALS: BP 79/29
[2019-07-21 13:51] LABS: BAND NEUTROPHIL 1 % (0-10); BASOPHIL 0 % (0-2); MONOCYTE 4 % (0-7); SEGMENTED NEUTROPHILS 87 % (37-75)
[2019-07-21 13:52] LABS: PLATELET MORPHOLOGY PLATELETS INCREASED; rbc morphology (normal/abnorm) ABNORMAL (NORMAL)
[2019-07-21 15:13] VITALS: BP 127/35
[2019-07-21 19:44] VITALS: BP 120/40
[2019-07-21 23:18] VITALS: BP 112/37
[2019-07-22 03:19] VITALS: BP 134/79
[2019-07-22 04:54] LABS: PLATELET COUNT 343 x10^3mcL (130-400)
[2019-07-22 04:56] LABS: CALCIUM 8.6 mg/dL (8.5-10.1); CARBON DIOXIDE 18.9 mmol/L (21-32); CHLORIDE SERUM 97 mmol/L (98-107); POTASSIUM SERUM 4.4 mmol/L (3.5-5.1); SODIUM SERUM 129 mmol/L (136-145)
[2019-07-22 04:59] LABS: CREATININE SERUM 6.9 mg/dL (0.6-1.0); GLUCOSE SERUM 44 mg/dL (74-106)
[2019-07-22 05:32] LABS: BAND NEUTROPHIL 0 % (0-10); MONOCYTE 6 % (0-7); SEGMENTED NEUTROPHILS 69 % (37-75)
[2019-07-22 05:33] LABS: ATYPICAL LYMPH 1 %; BASOPHIL 0 % (0-2)
[2019-07-22 05:40] LABS: PLATELET MORPHOLOGY PLATELETS NORMAL; rbc morphology (normal/abnorm) ABNORMAL (NORMAL)
[2019-07-22 07:00] VITALS: BP 165/45
[2019-07-22 07:50] VITALS: Ht 152.4 cm; Wt 54.0 kg
[2019-07-22 11:03] VITALS: BP 147/44
[2019-07-22 15:39] VITALS: BP 155/59
[2019-07-22 18:15] VITALS: BP 189/50
[2019-07-22 19:35] VITALS: BP 167/51
[2019-07-23 05:15] VITALS: BP 154/45
[2019-07-23 06:37] LABS: BASOPHIL % 0.7 % (0-2); PLATELET COUNT 314 x10^3mcL (130-400)
[2019-07-23 06:39] LABS: CALCIUM 8.9 mg/dL (8.5-10.1); CARBON DIOXIDE 29.9 mmol/L (21-32); CHLORIDE SERUM 101 mmol/L (98-107); MAGNESIUM 2.1 mg/dL (1.8-2.4); PHOSPHOROUS 4.8 mg/dL (2.5-4.9); POTASSIUM SERUM 4.4 mmol/L (3.5-5.1); SODIUM SERUM 139 mmol/L (136-145)
[2019-07-23 06:46] LABS: GLUCOSE SERUM 53 mg/dL (74-106)
[2019-07-23 06:47] LABS: CREATININE SERUM 4.5 mg/dL (0.6-1.0)
[2019-07-23 06:53] LABS: RED CELL DISTRIBUTION WIDTH 16.1 % (11.5-14.5)
[2019-07-23 07:25] VITALS: BP 190/74
[2019-07-23 09:00] VITALS: BP 185/59
[2019-07-23 13:55] VITALS: BP 134/36
[2019-07-23 17:15] VITALS: BP 160/70
[2019-07-23 20:51] VITALS: BP 177/57
[2019-07-24] VITALS (8 sets, daily range): BP systolic 103–202; BP diastolic 47–84
[2019-07-24 06:39] LABS: BASOPHIL % 0.4 % (0-2); PLATELET COUNT 323 x10^3mcL (130-400)
[2019-07-24 06:41] LABS: CALCIUM 8.8 mg/dL (8.5-10.1); CARBON DIOXIDE 27.8 mmol/L (21-32); CHLORIDE SERUM 100 mmol/L (98-107); GLUCOSE SERUM 149 mg/dL (74-106); PHOSPHOROUS 4.4 mg/dL (2.5-4.9); POTASSIUM SERUM 4.5 mmol/L (3.5-5.1); SODIUM SERUM 136 mmol/L (136-145)
[2019-07-24 06:51] LABS: CREATININE SERUM 6.4 mg/dL (0.6-1.0)
[2019-07-24 08:12] LABS: RED CELL DISTRIBUTION WIDTH 16.1 % (11.5-14.5)
[2019-07-25 05:01] VITALS: BP 140/36
[2019-07-25 06:32] LABS: BASOPHIL % 0.3 % (0-2); PLATELET COUNT 312 x10^3mcL (130-400)
[2019-07-25 06:37] LABS: RED CELL DISTRIBUTION WIDTH 17.4 % (11.5-14.5)
[2019-07-25 06:57] LABS: CALCIUM 9.1 mg/dL (8.5-10.1); CHLORIDE SERUM 100 mmol/L (98-107); GLUCOSE SERUM 118 mg/dL (74-106); POTASSIUM SERUM 4.9 mmol/L (3.5-5.1); SODIUM SERUM 136 mmol/L (136-145)
[2019-07-25 07:25] LABS: CREATININE SERUM 7.6 mg/dL (0.6-1.0)
[2019-07-25 09:27] VITALS: BP 189/70
[2019-07-25 12:46] VITALS: BP 181/73
[2019-07-25 16:03] VITALS: BP 138/63
[2019-07-25 20:27] VITALS: BP 150/54
[2019-07-26 05:13] VITALS: BP 106/30
[2019-07-26 06:03] VITALS: BP 123/34
[2019-07-26 06:46] LABS: CALCIUM 8.7 mg/dL (8.5-10.1); CARBON DIOXIDE 28.9 mmol/L (21-32); CHLORIDE SERUM 99 mmol/L (98-107); GLUCOSE SERUM 152 mg/dL (74-106); POTASSIUM SERUM 5.1 mmol/L (3.5-5.1); SODIUM SERUM 137 mmol/L (136-145)
[2019-07-26 06:58] LABS: BASOPHIL % 0.6 % (0-2); PLATELET COUNT 260 x10^3mcL (130-400); RED CELL DISTRIBUTION WIDTH 17.3 % (11.5-14.5)
[2019-07-26 07:11] LABS: CREATININE SERUM 5.2 mg/dL (0.6-1.0)
[2019-07-26 08:30] VITALS: BP 165/57
[2019-07-26 12:11] VITALS: BP 167/60
== END 2019-07-26 13:29 | disposition home or self-care (01) | DRG 242 ==
LOC: ED 07:31 → DU 09:34 → IC 11:51 → DU 07-22 17:26 → IW 07-22 17:35 → IC 07-22 17:38 → DU 07-22 17:59
PROVIDERS: Emergency Medicine; Internal Medicine; Internal Medicine Cardiovascular Disease; Internal Medicine Nephrology; ADMIT Internal Medicine
PROC: 02HK3JZ Insertion of Pacemaker Lead into Right Ventricle, Percutaneous Approach (ICD-10-PCS; 2019-07-24)
PROC: 02H63JZ Insertion of Pacemaker Lead into Right Atrium, Percutaneous Approach (ICD-10-PCS; 2019-07-24)
PROC: 0JH606Z Insertion of Pacemaker, Dual Chamber into Chest Subcutaneous Tissue and Fascia, Open Approach (ICD-10-PCS; principal; 2019-07-24 13:00)
PROC: 5A1D70Z Performance of Urinary Filtration, Intermittent, Less than 6 Hours Per Day (ICD-10-PCS; 2019-07-25)
PROC: 5A1D70Z Performance of Urinary Filtration, Intermittent, Less than 6 Hours Per Day (ICD-10-PCS; 2019-07-26)
DX: I49.5 Sick sinus syndrome (principal); N18.6 End stage renal disease; E87.1 Hypo-osmolality and hyponatremia; I12.0 Hypertensive chronic kidney disease with stage 5 chronic kidney disease or end stage renal disease; R00.1 Bradycardia, unspecified; I95.9 Hypotension, unspecified; I48.0 Paroxysmal atrial fibrillation; E11.22 Type 2 diabetes mellitus with diabetic chronic kidney disease; E11.649 Type 2 diabetes mellitus with hypoglycemia without coma; I35.2 Nonrheumatic aortic (valve) stenosis with insufficiency; D63.1 Anemia in chronic kidney disease; R54 Age-related physical debility; Z99.2 Dependence on renal dialysis; Z68.24 Body mass index [BMI] 24.0-24.9, adult; Z79.84 Long term (current) use of oral hypoglycemic drugs; Z79.01 Long term (current) use of anticoagulants
CPT/HCPCS: 82962; C9113; G0378; J0360; J0690; J1200; J1650; J2001; J2250; J2310; J2405; J3010; J3490; J7030; J7042; Q0092; Q9967